=== PATIENT | female | born 1985 | race American Indian/Alaskan Native ===

== ENCOUNTER 2018-03-15 17:53 | Emergency (ER) | payer SELFPAY ==
[2018-03-15 18:09] VITALS: BP 115/53
[2018-03-15] MEDS ORDERED: MOTRIN PO ONE (19:17)
--- NOTE | 2018-03-15 19:21 | Emergency Department Report ---
ED ENT HPI - General Chief complaint: Dental/Oral Stated complaint: ABCESS Time Seen by Provider: 03/15/18 19:17 Source: patient Mode of arrival: Ambulatory Limitations: No Limitations - History of Present Illness Initial comments: This is a 33-year-old female nontoxic, well nourished in appearance, no acute signs of distress presents to the ED with c/o of left lower toothache 3 weeks. Patient denies following up with a dentist. Patient stated that pain radiates from his job to his left side of head. Patient otherwise denies any head trauma. Patient describes toothache as aching level of 8 out of 10. Patient denies any facial swelling. Patient denies any numbness, tingling, fever, chills, headache, stiff neck, abdominal pain, chest pain, shortness of breath. Patient denies any drug allergies or significant past medical history. MD complaint: tooth pain -: week(s) (3) Location: tooth # 1 - pain Severity: mild Severity scale (0 -10): 8 Quality: aching Consistency: constant Improves with: none Worsens with: none Context- Dental: history of dental caries, poor dental care Associated Symptoms: gum swelling, toothache. denies: fever, cough, pain with swallowing, sore throat, tinnitus, hearing loss, discharge from ear, rhinorrhea - Related Data Previous Rx's Medication Instructions Recorded Last Taken Type Acetaminophen/Codeine [Tylenol 1 tab PO Q6H PRN #14 tab 03/15/18 Unknown Rx /Codeine # 3 tab] Amoxicillin/K Clav Tab [Augmentin 1 tab PO Q12HR #20 tab 03/15/18 Unknown Rx 875 mg] Chlorhexidine Mouthwash [Peridex] 15 ml MM BID #1 bottle 03/15/18 Unknown Rx Ibuprofen [Motrin] 600 mg PO Q8H PRN #30 tablet 03/15/18 Unknown Rx Allergies Allergy/AdvReac Type Severity Reaction Status Date / Time tree nut Allergy Shortness Verified 03/15/18 18:05 of Breath ED Dental HPI - General Chief complaint: Dental/Oral Stated complaint: ABCESS Time Seen by Provider: 03/15/18 19:17 Source: patient Mode of arrival: Ambulatory Limitations: No Limitations - Related Data Previous Rx's Medication Instructions Recorded Last Taken Type Acetaminophen/Codeine [Tylenol 1 tab PO Q6H PRN #14 tab 03/15/18 Unknown Rx /Codeine # 3 tab] Amoxicillin/K Clav Tab [Augmentin 1 tab PO Q12HR #20 tab 03/15/18 Unknown Rx 875 mg] Chlorhexidine Mouthwash [Peridex] 15 ml MM BID #1 bottle 03/15/18 Unknown Rx Ibuprofen [Motrin] 600 mg PO Q8H PRN #30 tablet 03/15/18 Unknown Rx Allergies Allergy/AdvReac Type Severity Reaction Status Date / Time tree nut Allergy Shortness Verified 03/15/18 18:05 of Breath ED Review of Systems ROS: Stated complaint: ABCESS Other details as noted in HPI Constitutional: denies: chills, fever Eyes: denies: eye pain, eye discharge, vision change ENT: dental pain. denies: ear pain, throat pain Respiratory: denies: cough, shortness of breath, wheezing Cardiovascular: denies: chest pain, palpitations Endocrine: no symptoms reported Gastrointestinal: denies: abdominal pain, nausea, diarrhea Genitourinary: denies: urgency, dysuria, discharge Musculoskeletal: denies: back pain, joint swelling, arthralgia Skin: denies: rash, lesions Neurological: denies: headache, weakness, paresthesias Psychiatric: denies: anxiety, depression Hematological/Lymphatic: denies: easy bleeding, easy bruising ED Past Medical Hx - Past Medical History Previous Medical History?: No - Surgical History Past Surgical History?: No - Social History Smoking Status: Never Smoker Substance Use Type: Alcohol, Non Opiate Pain - Medications Home Medications: Home Medications Medication Instructions Recorded Confirmed Last Taken Type Acetaminophen/Codeine [Tylenol 1 tab PO Q6H PRN #14 tab 03/15/18 Unknown Rx /Codeine # 3 tab] Amoxicillin/K Clav Tab [Augmentin 1 tab PO Q12HR #20 tab 03/15/18 Unknown Rx 875 mg] Chlorhexidine Mouthwash [Peridex] 15 ml MM BID #1 bottle 03/15/18 Unknown Rx Ibuprofen [Motrin] 600 mg PO Q8H PRN #30 tablet 03/15/18 Unknown Rx ED Physical Exam - General Limitations: No Limitations General appearance: alert, in no apparent distress - Head Head exam: Present: atraumatic, normocephalic - Eye Eye exam: Present: normal appearance Pupils: Present: normal accommodation - ENT ENT exam: Present: mucous membranes moist, TM's normal bilaterally, normal external ear exam - Expanded ENT Exam Expanded Ear exam: Present: normal external inspection Mouth exam: Present: normal external inspection, tongue normal. Absent: drooling, trismus, muffled voice, tongue elevation, laceration Teeth exam: Present: dental caries, fractured tooth #, dental tenderness #, gingival enlargement, other (no facial swelling) Throat exam: Positive: normal inspection, other (Uvula midline). Negative: tonsillar erythema, tonsillomegaly, tonsillar exudate, R peritonsillar mass, L peritonsillar mass - Neck Neck exam: Present: normal inspection - Respiratory Respiratory exam: Present: normal lung sounds bilaterally. Absent: respiratory distress - Cardiovascular Cardiovascular Exam: Present: regular rate, normal rhythm. Absent: systolic murmur, diastolic murmur, rubs, gallop - GI/Abdominal GI/Abdominal exam: Present: soft, normal bowel sounds - Extremities Exam Extremities exam: Present: normal inspection - Back Exam Back exam: Present: normal inspection - Neurological Exam Neurological exam: Present: alert, oriented X3 - Psychiatric Psychiatric exam: Present: normal affect, normal mood - Skin Skin exam: Present: warm, dry, intact, normal color. Absent: rash ED Course Vital Signs 03/15/18 18:05 Temperature 98.6 F Pulse Rate 62 Respiratory 18 Rate Blood Pressure 115/53 O2 Sat by Pulse 100 Oximetry - Reevaluation(s) Reevaluation #1: 03/15/18 19:18 Patient is speaking in full sentences with no signs of distress noted. Critical care attestation.: If time is entered above; I have spent that time in minutes in the direct care of this critically ill patient, excluding procedure time. ED Disposition Clinical Impression: Dental caries, Gingivitis Disposition: - TO HOME OR SELFCARE Is pt being admited?: No Does the pt Need Aspirin: No Condition: Stable Instructions: Dental Caries (ED), Gingivitis (ED), Acetaminophen/Codeine (By mouth) Additional Instructions: Follow-up with a dentist doctor in 3-5 days or if symptoms worsen and continue return to emergency room as soon as possible. Do not operate any machinery while taking Tylenol with codeine as this may cause drowsiness. Prescriptions: Acetaminophen/Codeine [Tylenol /Codeine # 3 tab] 1 tab PO Q6H PRN #14 tab PRN Reason: Pain , Severe (7-10) Amoxicillin/K Clav Tab [Augmentin 875 mg] 1 tab PO Q12HR #20 tab Chlorhexidine Mouthwash [Peridex] 15 ml MM BID #1 bottle Ibuprofen [Motrin] 600 mg PO Q8H PRN #30 tablet PRN Reason: Pain Referrals: PRIMARY CAREMD [Referring] - 3-5 Days TOVA YEE MD [Staff Physician] - 3-5 Days [facility] [Outside] - 3-5 Days Forms: Work/School Release Form(ED)
== END 2018-03-15 19:36 | disposition home or self-care (01) ==
LOC: ED 17:53
DX: K05.10 Chronic gingivitis, plaque induced (principal); Z91.018 Allergy to other foods
CPT/HCPCS: 99282

== ENCOUNTER 2018-03-17 16:29 | Emergency (ER) | payer SELFPAY ==
--- NOTE | 2018-03-17 20:00 | Emergency Department Report ---
ED ENT HPI - General Chief complaint: Dental/Oral Stated complaint: SWELLING OF THE JAW/GUM Time Seen by Provider: 03/17/18 19:22 Source: patient, family Mode of arrival: Ambulatory Limitations: No Limitations - History of Present Illness Initial comments: Patient reports that she was here 2 days ago on 03/15/2018 and was seen and given amoxicillin, Tylenol No. 3 and Peridex with Motrin. She said her right face started swelling. She was put on Augmentin for toothache. She said she was told she has gingivitis and she is having pain right second back to his # 32. Denies any trauma. She said the swelling started a couple days ago. She says she has an appointment with her dentist on Monday but the pain is unbearable. Last menstrual period was 03/04/2018. Pain is 10 out of 10 8 can worse with talking and eating. Denies any nausea or vomiting. Denies any fever or chills. Denies any chest pain or shortness of breath. Denies any drooling, swelling of tongue. She's been taking her medication that was prescribed and it's not helping. MD complaint: tooth pain, other (facial swelling) Onset/Timin -: Gradual, days(s) Location: tooth # (#31 second molar) 1 - Tooth #31 pain Severity: severe Severity scale (0 -10): 10 Quality: aching Consistency: constant Improves with: none Worsens with: eating, movement Context- Dental: poor dental care Associated Symptoms: toothache. denies: fever, cough, pain with swallowing, sore throat, tinnitus, hearing loss, discharge from ear, rhinorrhea - Related Data Previous Rx's Medication Instructions Recorded Last Taken Type Chlorhexidine Mouthwash [Peridex] 15 ml MM BID #1 bottle 03/15/18 Unknown Rx Ibuprofen [Motrin] 600 mg PO Q8H PRN #30 tablet 03/15/18 Unknown Rx Clindamycin HCl 300 mg PO Q8H 10 Days #30 capsule 03/17/18 Unknown Rx HYDROcodone/ACETAMINOPHEN [[place] 1 each PO Q6H PRN #14 tablet 03/17/18 Unknown Rx 7.5-325 Tablet] Allergies Allergy/AdvReac Type Severity Reaction Status Date / Time tree nut Allergy Shortness Verified 03/15/18 18:05 of Breath ED Dental HPI - General Chief complaint: Dental/Oral Stated complaint: SWELLING OF THE JAW/GUM Time Seen by Provider: 03/17/18 19:22 Source: patient Mode of arrival: Ambulatory Limitations: No Limitations - Related Data Previous Rx's Medication Instructions Recorded Last Taken Type Chlorhexidine Mouthwash [Peridex] 15 ml MM BID #1 bottle 03/15/18 Unknown Rx Ibuprofen [Motrin] 600 mg PO Q8H PRN #30 tablet 03/15/18 Unknown Rx Clindamycin HCl 300 mg PO Q8H 10 Days #30 capsule 03/17/18 Unknown Rx HYDROcodone/ACETAMINOPHEN [[place] 1 each PO Q6H PRN #14 tablet 03/17/18 Unknown Rx 7.5-325 Tablet] Allergies Allergy/AdvReac Type Severity Reaction Status Date / Time tree nut Allergy Shortness Verified 03/15/18 18:05 of Breath ED Review of Systems ROS: Stated complaint: SWELLING OF THE JAW/GUM Other details as noted in HPI Constitutional: denies: chills, fever Eyes: denies: eye pain, eye discharge ENT: dental pain. denies: ear pain, throat pain, epistaxis, congestion Respiratory: denies: cough, shortness of breath, SOB with exertion, SOB at rest , stridor, wheezing Cardiovascular: denies: chest pain, palpitations, edema, syncope Gastrointestinal: denies: nausea, vomiting, diarrhea Genitourinary: denies: urgency, dysuria, hematuria, discharge Musculoskeletal: denies: back pain, joint swelling, arthralgia Skin: denies: rash, lesions Neurological: paresthesias. denies: headache, weakness ED Past Medical Hx - Past Medical History Previous Medical History?: No - Surgical History Past Surgical History?: No - Family History Family history: no significant - Social History Smoking Status: Never Smoker Substance Use Type: None - Medications Home Medications: Home Medications Medication Instructions Recorded Confirmed Last Taken Type Chlorhexidine Mouthwash [Peridex] 15 ml MM BID #1 bottle 03/15/18 Unknown Rx Ibuprofen [Motrin] 600 mg PO Q8H PRN #30 tablet 03/15/18 Unknown Rx Clindamycin HCl 300 mg PO Q8H 10 Days #30 capsule 03/17/18 Unknown Rx HYDROcodone/ACETAMINOPHEN [[place] 1 each PO Q6H PRN #14 tablet 03/17/18 Unknown Rx 7.5-325 Tablet] ED Physical Exam - General Limitations: No Limitations General appearance: alert, in no apparent distress - Head Head exam: Present: atraumatic, normocephalic, normal inspection - Eye Eye exam: Present: normal appearance, PERRL, EOMI Pupils: Present: normal accommodation - ENT ENT exam: Present: normal orophraynx, mucous membranes moist, TM's normal bilaterally, normal external ear exam - Expanded ENT Exam Expanded Ear exam: Present: normal external inspection Teeth exam: Present: dental caries, fractured tooth # (#31), dental tenderness # (tooth #31), gingival enlargement Throat exam: Positive: normal inspection - Neck Neck exam: Present: normal inspection, full ROM, other (no C-spine tenderness). Absent: tenderness, meningismus, lymphadenopathy - Respiratory Respiratory exam: Present: normal lung sounds bilaterally. Absent: respiratory distress, chest wall tenderness - Cardiovascular Cardiovascular Exam: Present: regular rate, normal rhythm, normal heart sounds. Absent: systolic murmur, diastolic murmur - Extremities Exam Extremities exam: Present: normal inspection, full ROM, normal capillary refill , other (no clubbing, cyanosis or edema. +2 pulses to all extremities and no neurovascular compromise). Absent: tenderness, pedal edema, joint swelling, calf tenderness - Neurological Exam Neurological exam: Present: alert, oriented X3, normal gait - Psychiatric Psychiatric exam: Present: normal affect, normal mood - Skin Skin exam: Present: warm, dry, intact, normal color. Absent: rash ED Course Vital Signs 03/17/18 16:44 Temperature 98.8 F Pulse Rate 77 Respiratory 18 Rate Blood Pressure 122/75 O2 Sat by Pulse 97 Oximetry - Reevaluation(s) Reevaluation #1: 03/17/18 20:59 Patient received clindamycin 300 mg by mouth and plan to stop Augmentin. Receive Percocet 5/325 2 tablets. Emergency room and Motrin 800 mg by mouth which relieved her pain. ED Medical Decision Making - Medical Decision Making ED course: Care reports that she's been having a toothache for 4 days and she was treated in this emergency room 2 days ago and record reflects that she was treated for toothache and was given Augmentin, ibuprofen, acetaminophen and Peridex mouthwash. She said her toothache is worse in antibiotic is working. She says she is taking the Tylenol No. 3 and Motrin and her pain is worse and now she has right facial swelling. Patient states she has an appointment with the dentist on Monday but she cannot take the pain and all of a sudden her face started swelling so she is here to be evaluated Patient was examined by myself and found to have multiple dental caries, dental tenderness around tooth #31, dental abscess with facial swelling. She is able to open and close her mouth. Other from her to use her oral exam is normal and neck is stable. No findings for sinusitis or [employer]. Patient given antibiotic and pain medication and emergency room and she voiced relief of pain. She is to follow-up with her dentist in 2 days as scheduled. She voiced understanding of diagnosis. A/P 1: Dental abscess and cellulitis tooth-patient started on clindamycin 300 mg by mouth 1 and emergency room and will be sent home on clindamycin. We'll stop Augmentin 2: Dental caries-patient has dental appointment in 2 days 3: Toothache-patient given Percocet 5/325 2 tablets and Motrin 800 mg by mouth and was sent home on [place] and to continue with Motrin as previously prescribed. I will stop Tylenol 3. 4: Gingivitis: Continue Peridex mouthwash and she will be seen by dentist in 2 days Patient educated on the diagnosis, medication, Flossingn and uses mouthwash and need to follow up with dentist and she voiced understanding. Patient discharged home in stable condition. Her vital signs are stable she is afebrile. She says she feels better. Patient to follow up with her dentist in 2 days and I'll give her alternate dentist if needed. Patient discharged home with prescriptions for clindamycin, [place] and to discontinue her Tylenol 3 and Augmentin. I informed her if her condition worsens before Monday to return to the emergency room otherwise follow-up with her dentist that she voiced understanding. Discharged home from ED with her family in stable condition. - Differential Diagnosis [employer], dental abscess, oral cellulitis, toothache, gingivitis, Critical care attestation.: If time is entered above; I have spent that time in minutes in the direct care of this critically ill patient, excluding procedure time. ED Disposition Clinical Impression: Gingivitis, Dental caries, Oral abscess, Oral cellulitis, Toothache Disposition: TO HOME OR SELFCARE Is pt being admited?: No Does the pt Need Aspirin: No Condition: Stable Instructions: Dental Caries (ED), Toothache (ED), Dental Abscess (ED), Gingivitis (ED) Additional Instructions: Please follow up with Dentist as scheduled in 2 days. If You cannot get in W dentist he can follow-up at [facility] dental clinic. See information and discharge instruction paperwork Discontinue Tylenol 3 and Augmentin Continue to take Motrin and Peridex mouthwash There are [place] but he is in a drive or operate heavy machinery while taking this medication as it causes drowsiness Continue to take Motrin Please return to the emergency room if your condition worsens before Monday. Prescriptions: Clindamycin HCl 300 mg PO Q8H 10 Days #30 capsule HYDROcodone/ACETAMINOPHEN [[place] 7.5-325 Tablet] 1 each PO Q6H PRN #14 tablet PRN Reason: Severe pain Referrals: PRIMARY CARE [Primary Care Provider] - 3-5 Days [facility] [Outside] - 03/19/18 Forms: Work/School Release Form(ED)
[2018-03-17] MEDS ORDERED: MOTRIN PO ONE (20:07)
[2018-03-17] MEDS ORDERED: CLEOCIN PO ONE (20:07)
[2018-03-17] MEDS ORDERED: PERCOCET 5/325 PO ONE (20:07)
[2018-03-17 21:03] VITALS: BP 118/66
== END 2018-03-17 21:17 | disposition home or self-care (01) ==
LOC: ED 16:29
DX: K05.10 Chronic gingivitis, plaque induced (principal); K12.2 Cellulitis and abscess of mouth; K02.9 Dental caries, unspecified; K08.89 Other specified disorders of teeth and supporting structures; Z91.018 Allergy to other foods
CPT/HCPCS: 99282